=== PATIENT | female | born 1960 | race Asian ===

== ENCOUNTER 2017-10-16 12:23 | Outpatient (CLI) | payer OTHER, SELFPAY ==
--- NOTE | 2017-10-17 09:43 | Mammography Report ---
Bilateral mammogram: Compared to 10/21/16. CAD study utilized. Findings: Heterogeneous breast parenchyma bilaterally. No mass or microcalcification. Benign calcification right breast. Benign axillary nodes. Impression: Benign findings. Annual followup recommended. BI-RADS CATEGORY: 2 = Benign ACR BI-RADS MAMMOGRAPHIC CODES: 0 = Needs additional imaging evaluation; 1 = Negative; 2 = Benign; 3 = Probably benign; 4 = Suspicious; 5 = Malignant; 6 = Known biopsy-proven malignancy COMMENT: 1. Dense breast tissue, i.e., adenosis, fibrocystic changes, etc., may obscure an underlying neoplasm. 2. Approximately 10% of cancers are not detected with mammography. 3. A negative mammography report should not delay biopsy if a clinically suspicious mass is present. COMMENT: Patient follow-up letters are generated in [facility].
== END 2017-10-16 12:24 | disposition home or self-care (01) ==
LOC: MAMMO 12:23
PROVIDERS: ATTEND Obstetrics & Gynecology
DX: Z12.31 Encounter for screening mammogram for malignant neoplasm of breast (principal)
CPT/HCPCS: 77067; G0202

== ENCOUNTER 2019-10-13 11:05 | Day surgery (SDC) | payer OTHER ==
[2019-10-13] MEDS ORDERED: SODIUM CHLORIDE 0.9% 1000 ML 1,000 ML IV SCH (12:00)
--- NOTE | 2019-10-13 12:36 | Anesthesia Day of Surgery ---
Anesthesia Day of Surgery - Day of Surgery Patient Examined: Yes Patient H&P Reviewed: Yes Patient is NPO: Yes
--- NOTE | 2019-10-13 12:36 | Anesthesia Consultation ---
Anesthesia Consult and Med Hx Date of service: 10/13/19 - Airway Anesthetic Teeth Evaluation: Good ROM Head & Neck: Adequate Mental/Hyoid Distance: Adequate Mallampati Class: Class III Intubation Access Assessment: Possibly Difficult - Pulmonary Exam CTA: Yes - Cardiac Exam Cardiac Exam: RRR - Pre-Operative Health Status ASA Pre-Surgery Classification: ASA2 Proposed Anesthetic Plan: MAC - Pulmonary Hx Smoking: No Hx Respiratory Symptoms: No - Cardiovascular System Hx Hypertension: Yes (not currently on meds) - Central Nervous System CVA: No - Gastrointestinal Hx Gastroesophageal Reflux Disease: Yes - Endocrine Hx Renal Disease: No Hx Liver Disease: No Hx Non-Insulin Dependent Diabetes: Yes (diet controlled) Hx Thyroid Disease: No - Other Systems Hx Obesity: No
--- NOTE | 2019-10-13 13:56 | Operative Report ---
Operative Report Operative Report: Esophagogastroduodenoscopy Procedure Note Date of procedure: 10/13/2019 Endoscopist: Chucky Ramirez Pre-op diagnosis/indication: Dyspepsia, weight loss Post-op diagnosis: Normal upper endoscopy MEDICATIONS: MAC COMPLICATIONS: No immediate complications ESTIMATED BLOOD LOSS: None DESCRIPTION OF PROCEDURE: After consent was obtained, the patient was placed in the left lateral decubitis position. The olympus endoscope was inserted into the patient's mouth under direct vision and advanced to the 2nd portion of the duodenum without difficulty. The patient tolerated the procedure well. The views of the mucosa were good. The patient's vital signs were monitored continuously throughout the procedure. FINDINGS: The esophagus appeared normal. The stomach appeared normal. The duodenum appeared normal. IMPRESSION: 1. Normal upper endoscopy RECOMMENDATIONS: Follow-up in GI clinic in 1-2 months
--- NOTE | 2019-10-13 13:57 | Operative Report ---
Operative Report Operative Report: Colonoscopy Procedure Note Date of procedure: 10/13/2019 Endoscopist: Chucky Ramirez Pre-op diagnosis/indication: Screening for colorectal cancer Post-op diagnosis: Normal colonoscopy MEDICATIONS: MAC COMPLICATIONS: No immediate complications ESTIMATED BLOOD LOSS: none DESCRIPTION OF PROCEDURE: After consent was obtained, the patient was placed in the left lateral decubitis position. The olympus colonoscope was inserted into the rectum under direct vision, and advanced to the cecum without difficulty. The quality of prep was good. The patient tolerated the procedure well. The patient's vital signs were monitored continuously throughout the procedure. FINDINGS: The entire examined colon appeared normal. IMPRESSION: 1.Normal colonoscopy RECOMMENDATIONS: -Repeat colonoscopy in 10 years for screening purposes
--- NOTE | 2019-10-13 13:59 | Post Anesthesia Evaluation ---
- Post Anesthesia Evaluation Patient Participated: Yes Airway Patent: Yes Stable Respiratory Function: Yes Nausea/Vomiting: No Temp > 96.8F: Yes Pain Manageable: Yes Adequeate Hydration: Yes Anesthesia Complications: No
[2019-10-13] MEDS ORDERED: PROPOFOL 200 MG/20 ML VIAL IV ONE ×2 (14:26)
[2019-10-13 15:11] VITALS: BP 125/72
== END 2019-10-13 11:06 | disposition home or self-care (01) ==
LOC: GIO 11:05
PROVIDERS: ATTEND Internal Medicine Gastroenterology
DX: R63.4 Abnormal weight loss (principal); K30 Functional dyspepsia; E78.00 Pure hypercholesterolemia, unspecified; I10 Essential (primary) hypertension; K21.9 Gastro-esophageal reflux disease without esophagitis; M19.90 Unspecified osteoarthritis, unspecified site; E11.9 Type 2 diabetes mellitus without complications; F32.9 Major depressive disorder, single episode, unspecified; Z88.6 Allergy status to analgesic agent; Z88.0 Allergy status to penicillin; Z79.899 Other long term (current) drug therapy; Z98.890 Other specified postprocedural states; Z88.8 Allergy status to other drugs, medicaments and biological substances
CPT/HCPCS: 43235; 45378; 82962; J2704